=== PATIENT | male | born 1950 | race African-American/Black ===

== ENCOUNTER 2019-09-07 20:21 | Inpatient (IN) | payer MEDICARE, MEDICAID ==
[~2019-09-07] VITALS: Ht 165.1 cm; Wt 61.2 kg
[2019-09-07] MEDS ORDERED: LEVOFLOXACIN 750MG PREMIX 150 ML IV ONE (20:45)
[2019-09-07] MEDS ORDERED: SODIUM CHLORIDE 0.9% 1000ML BAG (SEPSIS BOLUS) IV ONE (20:45)
[2019-09-07] MEDS ORDERED: PIPERACILLIN/TAZ 3.375G PREMIX 50 ML IV ONE (20:45)
[2019-09-07 21:00] LABS: HEMATOCRIT. 25.8 % (42.0-52.0); HEMOGLOBIN. 7.9 g/dL (14.0-18.0); MEAN CORPUSCULAR HEMOGLOBIN 23.3 pg (28.0-32.0); MEAN CORPUSCULAR VOLUME 76.4 fL (80.0-94.0); MEAN PLATELET VOLUME 8.2 fl (7.4-10.4); PLATELET 718 x1000/uL (130-400); RED BLOOD CELL COUNT 3.38 mill/uL (4.7-6.1); RED CELL DISTRIBUTION WIDTH 16.5 % (11.6-14.6)
[2019-09-07] MEDS ORDERED: ACETAMINOPHEN 650MG SUPP PR ONE (21:00)
[2019-09-07 21:01] LABS: CHLORIDE 98 mEq/L (98-107)
[2019-09-07 21:05] LABS: INR 1.1
[2019-09-07 21:09] LABS: PLATELET ESTIMATE INCREASED
[2019-09-07 21:10] LABS: CLARITY URINE CLEAR (CLEAR); COLOR URINE YELLOW (YELLOW); KETONES URINE TRACE (NEGATIVE); LEUKOCYTE ESTERASE URINE TRACE (NEGATIVE); NITRITE URINE NEGATIVE (NEGATIVE); OCCULT BLOOD URINE NEGATIVE (NEGATIVE); PROTEIN URINE NEGATIVE (NEGATIVE); UROBILINOGEN URINE 0.2 E.U./dL (0.2-1.0)
[2019-09-08] VITALS (18 sets, daily range): BP systolic 110–130; BP diastolic 46–73
[2019-09-08] MEDS ORDERED: NON FORMULARY PATIENT HOME MED XX SCH (02:45)
[2019-09-08] MEDS ORDERED: DEXTROSE 50% WATER 50ML SYRINGE IV PRN (02:45)
[2019-09-08] MEDS: DEXT 5%/0.45% NACL 1000ML 1,000 ML IV SCH ×3 (03:52→22:21)
[2019-09-08] MEDS: PIPERACILLIN/TAZOBACTAM 3.375 G in DEXT 5% WATER 100 ML IV SCH ×4 (04:11→21:13)
[2019-09-08] MEDS: PANTOPRAZOLE 80 MG in SODIUM CHLORIDE 0.9% 100 ML IV SCH ×2 (04:11→13:47)
[2019-09-08] MEDS ORDERED: VANCOMYCIN 1500MG in DEXTROSE 5% WATER 250ML IV SCH (05:00)
[2019-09-08] MEDS: BLOOD SUGAR DIAGNOSTIC STRIP TEST SCH ×4 (06:00→23:50)
[2019-09-08] MEDS: INSULIN LISPRO 100 UNITS/ML SUBCUT SCH ×4 (07:29→21:00)
[2019-09-08] MEDS ORDERED: IPRATROPIUM/ALBUTEROL 0.5-3(2.5)MG/3ML NEB HHN PRN (09:45)
[2019-09-08] MEDS ORDERED: LIDOCAINE HCL/EPINEPHRINE 1%-EPI 1:100,000 20 ML VIAL INFIL SCH (10:00)
[2019-09-08 10:07] LABS: BG BASE EXCESS 1.7 mmol/L (-2.0-2.0); BG CARBOXYHEMOGLOBIN 0.3 % (0.5-1.5); BG DEOXYHEMOGLOBIN 10.3 % (0.0-5.0); BG FRACTION INSPIRED OXYGEN 21; BG HCO3 ACT 25.2 mmol/L (22.0-26.0); BG METHEMOGLOBIN 0.3 % (0.0-1.5); BG OXYGEN SATURATION 89.6 % (92.0-98.5); BG OXYHEMOGLOBIN 89.1 % (94.0-97.0); BG PCO2 33.7 mmHg (35.0-45.0); BG PH 7.492 (7.350-7.450); BG PO2 56.8 mmHg (75.0-100.0); BG SAMPLE SITE RIGHT RADIAL; BG TOTAL HEMOGLOBIN 5.7 g/dL (12.0-18.0); BG VENT MODE ROOM AIR
[2019-09-08 10:55] LABS: MEAN CORPUSCULAR HEMOGLOBIN 23.1 pg (28.0-32.0); MEAN CORPUSCULAR VOLUME 75.8 fL (80.0-94.0); PLATELET 521 x1000/uL (130-400); RED BLOOD CELL COUNT 2.37 mill/uL (4.7-6.1); RED CELL DISTRIBUTION WIDTH 16.4 % (11.6-14.6)
[2019-09-08 11:01] LABS: HEMOGLOBIN. 5.5 g/dL (14.0-18.0)
[2019-09-08 11:25] LABS: CHLORIDE 104 mEq/L (98-107)
[2019-09-08] MEDS ORDERED: INFLUENZA VIRUS VACCINE(AFLURIA) 0.5ML SYR IM ONE (12:00)
[2019-09-08 12:07] LABS: CHLORIDE 105 mEq/L (98-107)
[2019-09-08 13:01] LABS: NUCLEATED RED BLOOD CELLS 2 /100 WBC
[2019-09-08 13:02] LABS: PLATELET ESTIMATE INCREASED
[2019-09-08] MEDS: IPRATROPIUM/ALBUTEROL 0.5-3(2.5)MG/3ML NEB HHN SCH ×2 (14:04→20:40)
[2019-09-08] MEDS: PANTOPRAZOLE SODIUM 40 MG/VIAL IV SCH (17:06)
[2019-09-08] MEDS: VANCOMYCIN 1 G PREMIX 200 ML IV SCH (17:09)
[2019-09-08 18:27] LABS: HEMATOCRIT 22.8 % (42.0-52.0); HEMOGLOBIN 7.2 g/dL (14.0-18.0); MEAN CORPUSCULAR HEMOGLOBIN 25.4 pg (28.0-32.0); MEAN CORPUSCULAR VOLUME 80.1 fL (80.0-94.0); PLATELET 435 x1000/uL (130-400); RED BLOOD CELL COUNT 2.85 mill/uL (4.7-6.1); RED CELL DISTRIBUTION WIDTH 17.5 % (11.6-14.6)
[2019-09-08] MEDS: ACETAMINOPHEN 650MG/20.3ML UDC PO PRN (21:21)
[2019-09-09] VITALS (17 sets, daily range): BP systolic 106–147; BP diastolic 52–79
[2019-09-09] MEDS: IPRATROPIUM/ALBUTEROL 0.5-3(2.5)MG/3ML NEB HHN SCH ×4 (01:01→20:41)
[2019-09-09] MEDS: PIPERACILLIN/TAZOBACTAM 3.375 G in DEXT 5% WATER 100 ML IV SCH ×4 (03:11→22:18)
[2019-09-09] MEDS: VANCOMYCIN 1 G PREMIX 200 ML IV SCH ×3 (06:17→22:18)
[2019-09-09] MEDS: INSULIN LISPRO 100 UNITS/ML SUBCUT SCH ×4 (06:46→21:00)
[2019-09-09] MEDS: BLOOD SUGAR DIAGNOSTIC STRIP TEST SCH ×3 (06:46→18:08)
[2019-09-09 07:52] LABS: HEMOGLOBIN. 8.7 g/dL (14.0-18.0); MEAN CORPUSCULAR HEMOGLOBIN 26.1 pg (28.0-32.0); MEAN CORPUSCULAR VOLUME 78.2 fL (80.0-94.0); MEAN PLATELET VOLUME 7.9 fl (7.4-10.4); PLATELET 426 x1000/uL (130-400); RED BLOOD CELL COUNT 3.33 mill/uL (4.7-6.1); RED CELL DISTRIBUTION WIDTH 16.6 % (11.6-14.6)
[2019-09-09 08:21] LABS: CHLORIDE 106 mEq/L (98-107)
[2019-09-09] MEDS: PANTOPRAZOLE SODIUM 40 MG/VIAL IV SCH ×2 (09:35→17:54)
[2019-09-09] MEDS: DEXT 5%/0.45% NACL 1000ML 1,000 ML IV SCH ×2 (10:37→22:30)
[2019-09-09] MEDS: ACETAMINOPHEN 650MG/20.3ML UDC PO PRN (11:43)
[2019-09-09] MEDS ORDERED: POTASSIUM CHLORIDE INJ 40 MEQ in DEXT 5% WATER 250 ML IV NR (13:30)
[2019-09-09 14:02] LABS: PLATELET ESTIMATE SLIGHTLY INCREASED
[2019-09-09 14:19] LABS: BG CARBOXYHEMOGLOBIN 0.5 % (0.5-1.5); BG DEOXYHEMOGLOBIN 2.5 % (0.0-5.0); BG FRACTION INSPIRED OXYGEN 28; BG HCO3 ACT 24.7 mmol/L (22.0-26.0); BG METHEMOGLOBIN 0.2 % (0.0-1.5); BG OXYGEN SATURATION 97.5 % (92.0-98.5); BG OXYHEMOGLOBIN 96.8 % (94.0-97.0); BG PCO2 35.4 mmHg (35.0-45.0); BG PH 7.461 (7.350-7.450); BG PO2 96.6 mmHg (75.0-100.0); BG SAMPLE SITE RIGHT RADIAL; BG TOTAL HEMOGLOBIN 8.7 g/dL (12.0-18.0); BG VENT MODE NASAL CANNULA
[2019-09-09 15:55] LABS: HEMATOCRIT 26.3 % (42.0-52.0); HEMOGLOBIN 8.5 g/dL (14.0-18.0)
[2019-09-09 20:32] LABS: HEMATOCRIT 28.2 % (42.0-52.0); HEMOGLOBIN 9.1 g/dL (14.0-18.0)
[2019-09-10] VITALS (12 sets, daily range): BP systolic 112–158; BP diastolic 63–74
[2019-09-10] MEDS: BLOOD SUGAR DIAGNOSTIC STRIP TEST SCH ×4 (00:19→17:13)
[2019-09-10] MEDS: IPRATROPIUM/ALBUTEROL 0.5-3(2.5)MG/3ML NEB HHN SCH ×4 (01:22→20:50)
[2019-09-10 02:15] LABS: HEMATOCRIT 27.5 % (42.0-52.0); HEMOGLOBIN 8.7 g/dL (14.0-18.0)
[2019-09-10] MEDS: PIPERACILLIN/TAZOBACTAM 3.375 G in DEXT 5% WATER 100 ML IV SCH ×4 (03:17→21:07)
[2019-09-10] MEDS: INSULIN LISPRO 100 UNITS/ML SUBCUT SCH ×3 (06:00→17:13)
[2019-09-10] MEDS: VANCOMYCIN 1 G PREMIX 200 ML IV SCH ×3 (06:16→21:33)
[2019-09-10 08:11] LABS: HEMATOCRIT. 28.8 % (42.0-52.0); HEMOGLOBIN. 9.3 g/dL (14.0-18.0); MEAN CORPUSCULAR HEMOGLOBIN 25.8 pg (28.0-32.0); MEAN CORPUSCULAR VOLUME 80.4 fL (80.0-94.0); MEAN PLATELET VOLUME 8.4 fl (7.4-10.4); PLATELET 440 x1000/uL (130-400); RED BLOOD CELL COUNT 3.59 mill/uL (4.7-6.1); RED CELL DISTRIBUTION WIDTH 17.5 % (11.6-14.6)
[2019-09-10 09:06] LABS: CHLORIDE 105 mEq/L (98-107)
[2019-09-10] MEDS: PANTOPRAZOLE SODIUM 40 MG/VIAL IV SCH ×2 (09:55→17:17)
[2019-09-10] MEDS ORDERED: POTASSIUM CHLORIDE INJ 40 MEQ in DEXT 5% WATER 250 ML IV NR (11:30)
[2019-09-10 11:38] LABS: PLATELET ESTIMATE INCREASED
[2019-09-10] MEDS ORDERED: FENTANYL CITRATE/PF 50MCG/ML 2ML VIAL ONE (13:54)
[2019-09-10] MEDS ORDERED: MIDAZOLAM HCL 5 MG/5 ML VIAL ONE (13:54)
[2019-09-10] MEDS ORDERED: MIDAZOLAM HCL 5 MG/5 ML VIAL IV ONE (14:11)
[2019-09-10] MEDS: DEXT 5%/0.45% NACL 1000ML 1,000 ML IV SCH ×2 (14:44→20:22)
[2019-09-10] MEDS ORDERED: BACTERIOSTATIC SODIUM CHLORIDE 0.9% 30ML VIAL IJ ONE (15:17)
[2019-09-11] VITALS (13 sets, daily range): BP systolic 108–138; BP diastolic 53–80
[2019-09-11] MEDS: BLOOD SUGAR DIAGNOSTIC STRIP TEST SCH ×5 (00:23→23:28)
[2019-09-11] MEDS: ACETAMINOPHEN 650MG/20.3ML UDC PO PRN ×2 (01:24→16:17)
[2019-09-11] MEDS: IPRATROPIUM/ALBUTEROL 0.5-3(2.5)MG/3ML NEB HHN SCH ×4 (02:06→21:18)
[2019-09-11] MEDS: PIPERACILLIN/TAZOBACTAM 3.375 G in DEXT 5% WATER 100 ML IV SCH ×4 (04:28→21:33)
[2019-09-11] MEDS: VANCOMYCIN 1 G PREMIX 200 ML IV SCH ×2 (05:00→13:51)
[2019-09-11 06:22] LABS: BASOPHILS % 0.3 % (0.0-2.0); EOSINOPHILS % 1.6 % (0.0-5.0); HEMATOCRIT. 25.9 % (42.0-52.0); HEMOGLOBIN. 8.4 g/dL (14.0-18.0); LYMPHOCYTES % 7.6 % (20.0-50.0); MEAN CORPUSCULAR HEMOGLOBIN 25.8 pg (28.0-32.0); MEAN CORPUSCULAR VOLUME 79.7 fL (80.0-94.0); MEAN PLATELET VOLUME 8.3 fl (7.4-10.4); MONOCYTES % 8.7 % (2.0-8.0); NEUTROPHILS % 81.8 % (40.0-76.0); PLATELET 464 x1000/uL (130-400); RED BLOOD CELL COUNT 3.25 mill/uL (4.7-6.1); RED CELL DISTRIBUTION WIDTH 17.7 % (11.6-14.6)
[2019-09-11 06:57] LABS: CHLORIDE 104 mEq/L (98-107)
[2019-09-11] MEDS: PANTOPRAZOLE SODIUM 40 MG/VIAL IV SCH ×2 (09:54→16:17)
[2019-09-11] MEDS ORDERED: POTASSIUM CHLORIDE 20MEQ TABLET SR PO SCH (10:45)
[2019-09-11] MEDS: DEXT 5%/0.45% NACL 1000ML 1,000 ML IV SCH ×2 (11:00→21:33)
[2019-09-11] MEDS: INSULIN LISPRO 100 UNITS/ML SUBCUT SCH ×4 (12:00→23:28)
[2019-09-12] VITALS (11 sets, daily range): BP systolic 101–159; BP diastolic 51–80
[2019-09-12] MEDS: IPRATROPIUM/ALBUTEROL 0.5-3(2.5)MG/3ML NEB HHN SCH ×4 (01:26→20:16)
[2019-09-12] MEDS: PIPERACILLIN/TAZOBACTAM 3.375 G in DEXT 5% WATER 100 ML IV SCH ×2 (03:45→09:22)
[2019-09-12] MEDS: BLOOD SUGAR DIAGNOSTIC STRIP TEST SCH ×4 (05:32→23:32)
[2019-09-12] MEDS: INSULIN LISPRO 100 UNITS/ML SUBCUT SCH ×4 (05:32→23:32)
[2019-09-12] MEDS ORDERED: VANCOMYCIN 1 G PREMIX 200 ML IV SCH (06:00)
[2019-09-12 07:21] LABS: HEMATOCRIT. 26.3 % (42.0-52.0); HEMOGLOBIN. 8.4 g/dL (14.0-18.0); MEAN CORPUSCULAR HEMOGLOBIN 25.6 pg (28.0-32.0); MEAN PLATELET VOLUME 8.2 fl (7.4-10.4); PLATELET 505 x1000/uL (130-400); RED BLOOD CELL COUNT 3.28 mill/uL (4.7-6.1); RED CELL DISTRIBUTION WIDTH 18.4 % (11.6-14.6)
[2019-09-12] MEDS: ZINC SULFATE 220 MG ( 50 ) CAPSULE GT SCH (08:28)
[2019-09-12] MEDS: ASCORBIC ACID 500 MG TABLET GT SCH (08:28)
[2019-09-12] MEDS: PANTOPRAZOLE SODIUM 40 MG/VIAL IV SCH ×2 (08:28→17:44)
[2019-09-12] MEDS: ACETAMINOPHEN 650MG/20.3ML UDC PO PRN ×2 (09:07→23:23)
[2019-09-12 11:22] LABS: PLATELET ESTIMATE INCREASED
[2019-09-12] MEDS ORDERED: CEFEPIME 2,000 MG in DEXT 5% WATER 100 ML IV SCH ×2 (12:00→13:00)
[2019-09-12] MEDS: DEXT 5%/0.45% NACL 1000ML 1,000 ML IV SCH ×2 (13:48→22:30)
[2019-09-12] MEDS ORDERED: SODIUM CHLORIDE 0.9% 500 ML IV NR (15:15)
[2019-09-12] MEDS: LINEZOLID 600 MG PREMIX 300 ML IV SCH (15:40)
[2019-09-12] MEDS: METRONIDAZOLE 250MG TABLET PO SCH ×2 (17:44→22:22)
[2019-09-13] VITALS (12 sets, daily range): BP systolic 120–155; BP diastolic 63–76
[2019-09-13] MEDS: IPRATROPIUM/ALBUTEROL 0.5-3(2.5)MG/3ML NEB HHN SCH ×4 (00:20→20:53)
[2019-09-13] MEDS: LINEZOLID 600 MG PREMIX 300 ML IV SCH (02:00)
[2019-09-13] MEDS: METRONIDAZOLE 250MG TABLET PO SCH ×2 (03:48→09:27)
[2019-09-13] MEDS: INSULIN LISPRO 100 UNITS/ML SUBCUT SCH ×3 (06:00→18:00)
[2019-09-13] MEDS: BLOOD SUGAR DIAGNOSTIC STRIP TEST SCH ×3 (06:03→18:00)
[2019-09-13 07:20] LABS: BASOPHILS % 0.3 % (0.0-2.0); EOSINOPHILS % 1.2 % (0.0-5.0); HEMATOCRIT. 26.6 % (42.0-52.0); HEMOGLOBIN. 8.5 g/dL (14.0-18.0); LYMPHOCYTES % 9.2 % (20.0-50.0); MEAN CORPUSCULAR HEMOGLOBIN 25.5 pg (28.0-32.0); MEAN CORPUSCULAR VOLUME 79.8 fL (80.0-94.0); MEAN PLATELET VOLUME 8.3 fl (7.4-10.4); MONOCYTES % 9.5 % (2.0-8.0); NEUTROPHILS % 79.8 % (40.0-76.0); PLATELET 501 x1000/uL (130-400); RED BLOOD CELL COUNT 3.34 mill/uL (4.7-6.1); RED CELL DISTRIBUTION WIDTH 18.5 % (11.6-14.6)
[2019-09-13] MEDS: PANTOPRAZOLE SODIUM 40 MG/VIAL IV SCH ×2 (09:19→18:29)
[2019-09-13] MEDS: DEXT 5%/0.45% NACL 1000ML 1,000 ML IV SCH ×2 (09:20→20:19)
[2019-09-13] MEDS: ASCORBIC ACID 500 MG TABLET GT SCH (09:20)
[2019-09-13] MEDS: ZINC SULFATE 220 MG ( 50 ) CAPSULE GT SCH (09:20)
[2019-09-13 12:22] LABS: CREATINE KINASE 876 IU/L (39-308)
[2019-09-13] MEDS: SUCRALFATE 1 G/10 ML UDC PO SCH ×3 (13:01→20:19)
[2019-09-13] MEDS: PIPERACILLIN/TAZOBACTAM 2.25 G in DEXTROSE 5% WATER 50 ML IV SCH ×2 (14:26→20:19)
[2019-09-13] MEDS ORDERED: VANCOMYCIN 1 G PREMIX 200 ML IV SCH (18:00)
[2019-09-14] VITALS (12 sets, daily range): BP systolic 131–166; BP diastolic 59–86
[2019-09-14] MEDS: BLOOD SUGAR DIAGNOSTIC STRIP TEST SCH ×4 (00:05→18:10)
[2019-09-14] MEDS: PIPERACILLIN/TAZOBACTAM 2.25 G in DEXTROSE 5% WATER 50 ML IV SCH ×4 (01:38→19:50)
[2019-09-14] MEDS: IPRATROPIUM/ALBUTEROL 0.5-3(2.5)MG/3ML NEB HHN SCH ×4 (02:32→20:02)
[2019-09-14] MEDS: INSULIN LISPRO 100 UNITS/ML SUBCUT SCH ×4 (06:00→18:00)
[2019-09-14] MEDS: SUCRALFATE 1 G/10 ML UDC PO SCH ×4 (06:46→20:00)
[2019-09-14] MEDS: DEXT 5%/0.45% NACL 1000ML 1,000 ML IV SCH ×2 (06:48→16:22)
[2019-09-14 06:56] LABS: BASOPHILS % 0.3 % (0.0-2.0); HEMATOCRIT. 26.5 % (42.0-52.0); HEMOGLOBIN. 8.6 g/dL (14.0-18.0); LYMPHOCYTES % 13.4 % (20.0-50.0); MEAN CORPUSCULAR HEMOGLOBIN 25.8 pg (28.0-32.0); MEAN CORPUSCULAR VOLUME 79.6 fL (80.0-94.0); MEAN PLATELET VOLUME 8.6 fl (7.4-10.4); MONOCYTES % 7.9 % (2.0-8.0); NEUTROPHILS % 76.4 % (40.0-76.0); PLATELET 508 x1000/uL (130-400); RED BLOOD CELL COUNT 3.32 mill/uL (4.7-6.1); RED CELL DISTRIBUTION WIDTH 18.7 % (11.6-14.6)
[2019-09-14] MEDS: PANTOPRAZOLE SODIUM 40 MG/VIAL IV SCH ×2 (09:20→16:22)
[2019-09-14] MEDS: ZINC SULFATE 220 MG ( 50 ) CAPSULE GT SCH (09:20)
[2019-09-14] MEDS: ASCORBIC ACID 500 MG TABLET GT SCH (09:20)
[2019-09-14 10:16] LABS: CREATINE KINASE 991 IU/L (39-308)
[2019-09-15] VITALS (12 sets, daily range): BP systolic 119–160; BP diastolic 61–81
[2019-09-15] MEDS: BLOOD SUGAR DIAGNOSTIC STRIP TEST SCH ×4 (00:27→18:07)
[2019-09-15] MEDS: DEXT 5%/0.45% NACL 1000ML 1,000 ML IV SCH ×3 (01:31→20:43)
[2019-09-15] MEDS: PIPERACILLIN/TAZOBACTAM 2.25 G in DEXTROSE 5% WATER 50 ML IV SCH ×4 (01:31→20:43)
[2019-09-15] MEDS: IPRATROPIUM/ALBUTEROL 0.5-3(2.5)MG/3ML NEB HHN SCH ×4 (02:32→21:24)
[2019-09-15 04:17] LABS: OVA & PARASITE EXAM Final report (.)
[2019-09-15] MEDS: INSULIN LISPRO 100 UNITS/ML SUBCUT SCH ×4 (06:00→18:00)
[2019-09-15 07:09] LABS: BASOPHILS % 0.3 % (0.0-2.0); EOSINOPHILS % 1.9 % (0.0-5.0); HEMATOCRIT. 27.8 % (42.0-52.0); HEMOGLOBIN. 8.9 g/dL (14.0-18.0); LYMPHOCYTES % 9.5 % (20.0-50.0); MEAN CORPUSCULAR HEMOGLOBIN 25.3 pg (28.0-32.0); MEAN CORPUSCULAR VOLUME 79.2 fL (80.0-94.0); MEAN PLATELET VOLUME 8.3 fl (7.4-10.4); MONOCYTES % 6.9 % (2.0-8.0); NEUTROPHILS % 81.4 % (40.0-76.0); PLATELET 538 x1000/uL (130-400); RED BLOOD CELL COUNT 3.51 mill/uL (4.7-6.1); RED CELL DISTRIBUTION WIDTH 18.9 % (11.6-14.6)
[2019-09-15] MEDS: SUCRALFATE 1 G/10 ML UDC PO SCH ×4 (08:52→20:43)
[2019-09-15] MEDS: ZINC SULFATE 220 MG ( 50 ) CAPSULE GT SCH (08:52)
[2019-09-15] MEDS: ASCORBIC ACID 500 MG TABLET GT SCH (08:52)
[2019-09-15] MEDS: PANTOPRAZOLE SODIUM 40 MG/VIAL IV SCH ×2 (08:52→18:12)
[2019-09-15 09:06] LABS: COMPLEMENT C3 123 mg/dL (82-167)
[2019-09-15 09:06] LABS: SACCHAROMYCES CEREVISIAE IGG 36.9 Units (0.0-24.9)
[2019-09-15 14:07] LABS: ATYPICAL pANCA <1:20 titer (Neg:<1:20)
[2019-09-15 15:10] LABS: ANTI-NUCLEAR ANTIBODIES DIRECT Negative (Negative)
[2019-09-16] VITALS (12 sets, daily range): BP systolic 124–145; BP diastolic 64–79
[2019-09-16] MEDS: PIPERACILLIN/TAZOBACTAM 2.25 G in DEXTROSE 5% WATER 50 ML IV SCH ×4 (01:42→20:59)
[2019-09-16] MEDS: IPRATROPIUM/ALBUTEROL 0.5-3(2.5)MG/3ML NEB HHN SCH ×4 (01:46→21:14)
[2019-09-16] MEDS: INSULIN LISPRO 100 UNITS/ML SUBCUT SCH ×4 (06:00→17:32)
[2019-09-16 06:03] LABS: BASOPHILS % 0.3 % (0.0-2.0); EOSINOPHILS % 2.7 % (0.0-5.0); HEMATOCRIT. 26.4 % (42.0-52.0); HEMOGLOBIN. 8.5 g/dL (14.0-18.0); LYMPHOCYTES % 13.1 % (20.0-50.0); MEAN CORPUSCULAR HEMOGLOBIN 25.5 pg (28.0-32.0); MEAN CORPUSCULAR VOLUME 79.7 fL (80.0-94.0); MEAN PLATELET VOLUME 8.6 fl (7.4-10.4); MONOCYTES % 6.2 % (2.0-8.0); NEUTROPHILS % 77.7 % (40.0-76.0); PLATELET 546 x1000/uL (130-400); RED BLOOD CELL COUNT 3.31 mill/uL (4.7-6.1); RED CELL DISTRIBUTION WIDTH 18.9 % (11.6-14.6)
[2019-09-16] MEDS: BLOOD SUGAR DIAGNOSTIC STRIP TEST SCH ×4 (06:06→17:32)
[2019-09-16] MEDS: DEXT 5%/0.45% NACL 1000ML 1,000 ML IV SCH ×2 (06:07→18:57)
[2019-09-16] MEDS: PANTOPRAZOLE SODIUM 40 MG/VIAL IV SCH ×2 (09:26→17:39)
[2019-09-16] MEDS: ASCORBIC ACID 500 MG TABLET GT SCH (09:26)
[2019-09-16] MEDS: ZINC SULFATE 220 MG ( 50 ) CAPSULE GT SCH (09:27)
[2019-09-16] MEDS: SUCRALFATE 1 G/10 ML UDC PO SCH ×4 (09:27→21:27)
[2019-09-16 17:47] LABS: PHOSPHORUS 3.2 mg/dL (2.5-4.9)
[2019-09-17] VITALS (12 sets, daily range): BP systolic 133–147; BP diastolic 69–84
[2019-09-17] MEDS: BLOOD SUGAR DIAGNOSTIC STRIP TEST SCH ×5 (00:30→23:33)
[2019-09-17] MEDS: IPRATROPIUM/ALBUTEROL 0.5-3(2.5)MG/3ML NEB HHN SCH ×4 (01:47→20:33)
[2019-09-17] MEDS: PIPERACILLIN/TAZOBACTAM 2.25 G in DEXTROSE 5% WATER 50 ML IV SCH ×4 (03:26→21:59)
[2019-09-17] MEDS: DEXT 5%/0.45% NACL 1000ML 1,000 ML IV SCH ×3 (03:26→23:33)
[2019-09-17] MEDS: INSULIN LISPRO 100 UNITS/ML SUBCUT SCH ×5 (05:18→23:42)
[2019-09-17] MEDS: SUCRALFATE 1 G/10 ML UDC PO SCH ×4 (06:26→22:00)
[2019-09-17 06:52] LABS: BASOPHILS % 0.4 % (0.0-2.0); EOSINOPHILS % 2.7 % (0.0-5.0); HEMATOCRIT. 24.7 % (42.0-52.0); HEMOGLOBIN. 7.9 g/dL (14.0-18.0); LYMPHOCYTES % 13.3 % (20.0-50.0); MEAN CORPUSCULAR HEMOGLOBIN 25.1 pg (28.0-32.0); MEAN CORPUSCULAR VOLUME 78.8 fL (80.0-94.0); MEAN PLATELET VOLUME 8.8 fl (7.4-10.4); NEUTROPHILS % 77.6 % (40.0-76.0); PLATELET 519 x1000/uL (130-400); RED BLOOD CELL COUNT 3.13 mill/uL (4.7-6.1); RED CELL DISTRIBUTION WIDTH 18.9 % (11.6-14.6)
[2019-09-17] MEDS: ASCORBIC ACID 500 MG TABLET GT SCH (08:10)
[2019-09-17] MEDS: PANTOPRAZOLE SODIUM 40 MG/VIAL IV SCH ×2 (08:10→17:18)
[2019-09-17] MEDS: ZINC SULFATE 220 MG ( 50 ) CAPSULE GT SCH (08:10)
[2019-09-17] MEDS: ASCORBIC ACID 250 MG TABLET PO SCH ×2 (10:24→22:00)
[2019-09-17] MEDS ORDERED: FERROUS SULFATE 325MG TABLET PO SCH (13:00)
[2019-09-17] MEDS: FERROUS SULFATE 300MG/5ML UDC PEG SCH ×2 (13:41→17:18)
[2019-09-18] VITALS (12 sets, daily range): BP systolic 128–172; BP diastolic 65–91
[2019-09-18] MEDS: IPRATROPIUM/ALBUTEROL 0.5-3(2.5)MG/3ML NEB HHN SCH ×4 (02:06→20:32)
[2019-09-18] MEDS: PIPERACILLIN/TAZOBACTAM 2.25 G in DEXTROSE 5% WATER 50 ML IV SCH ×4 (02:27→21:25)
[2019-09-18] MEDS: INSULIN LISPRO 100 UNITS/ML SUBCUT SCH ×3 (05:52→17:36)
[2019-09-18] MEDS: BLOOD SUGAR DIAGNOSTIC STRIP TEST SCH ×3 (05:52→17:36)
[2019-09-18] MEDS: SUCRALFATE 1 G/10 ML UDC PO SCH ×4 (06:03→21:25)
[2019-09-18 06:05] LABS: BASOPHILS % 0.6 % (0.0-2.0); EOSINOPHILS % 2.1 % (0.0-5.0); HEMATOCRIT. 24.2 % (42.0-52.0); HEMOGLOBIN. 7.6 g/dL (14.0-18.0); LYMPHOCYTES % 10.9 % (20.0-50.0); MEAN CORPUSCULAR HEMOGLOBIN 25.3 pg (28.0-32.0); MEAN PLATELET VOLUME 9.4 fl (7.4-10.4); MONOCYTES % 5.3 % (2.0-8.0); NEUTROPHILS % 81.1 % (40.0-76.0); PLATELET 524 x1000/uL (130-400); RED BLOOD CELL COUNT 3.02 mill/uL (4.7-6.1); RED CELL DISTRIBUTION WIDTH 19.3 % (11.6-14.6)
[2019-09-18 06:14] LABS: CHLORIDE 111 mEq/L (98-107)
[2019-09-18 08:46] LABS: PLATELET ESTIMATE INCREASED
[2019-09-18] MEDS: PANTOPRAZOLE SODIUM 40 MG/VIAL IV SCH ×2 (09:20→17:37)
[2019-09-18] MEDS: ASCORBIC ACID 500 MG TABLET GT SCH (09:20)
[2019-09-18] MEDS: ZINC SULFATE 220 MG ( 50 ) CAPSULE GT SCH (09:21)
[2019-09-18] MEDS: ASCORBIC ACID 250 MG TABLET PO SCH ×2 (09:21→21:26)
[2019-09-18] MEDS: DEXT 5%/0.45% NACL 1000ML 1,000 ML IV SCH ×2 (09:22→19:45)
[2019-09-18] MEDS: FERROUS SULFATE 300MG/5ML UDC PEG SCH ×3 (09:22→17:36)
[2019-09-18] MEDS ORDERED: POTASSIUM CHLORIDE 20MEQ/PACKET PO NR (09:30)
[2019-09-18] MEDS ORDERED: AMLODIPINE 2.5MG TABLET PEG NR (14:30)
[2019-09-19] VITALS (12 sets, daily range): BP systolic 117–161; BP diastolic 60–79
[2019-09-19] MEDS: PIPERACILLIN/TAZOBACTAM 2.25 G in DEXTROSE 5% WATER 50 ML IV SCH ×4 (01:52→20:33)
[2019-09-19] MEDS: IPRATROPIUM/ALBUTEROL 0.5-3(2.5)MG/3ML NEB HHN SCH ×4 (02:36→20:31)
[2019-09-19 03:19] LABS: CLARITY URINE CLEAR (CLEAR); COLOR URINE YELLOW (YELLOW); KETONES URINE NEGATIVE (NEGATIVE); LEUKOCYTE ESTERASE URINE NEGATIVE (NEGATIVE); NITRITE URINE NEGATIVE (NEGATIVE); OCCULT BLOOD URINE NEGATIVE (NEGATIVE); PROTEIN URINE NEGATIVE (NEGATIVE); SPECIFIC GRAVITY URINE 1.008 (1.005-1.030); UROBILINOGEN URINE 0.2 E.U./dL (0.2-1.0)
[2019-09-19] MEDS: DEXT 5%/0.45% NACL 1000ML 1,000 ML IV SCH (04:43)
[2019-09-19 05:42] LABS: BASOPHILS % 0.4 % (0.0-2.0); HEMATOCRIT. 25.5 % (42.0-52.0); HEMOGLOBIN. 8.2 g/dL (14.0-18.0); LYMPHOCYTES % 12.6 % (20.0-50.0); MEAN CORPUSCULAR HEMOGLOBIN 25.2 pg (28.0-32.0); MEAN CORPUSCULAR VOLUME 78.5 fL (80.0-94.0); MONOCYTES % 5.8 % (2.0-8.0); NEUTROPHILS % 78.2 % (40.0-76.0); PLATELET 540 x1000/uL (130-400); RED BLOOD CELL COUNT 3.26 mill/uL (4.7-6.1); RED CELL DISTRIBUTION WIDTH 19.1 % (11.6-14.6)
[2019-09-19] MEDS: BLOOD SUGAR DIAGNOSTIC STRIP TEST SCH ×4 (06:00→17:14)
[2019-09-19] MEDS: INSULIN LISPRO 100 UNITS/ML SUBCUT SCH ×4 (06:00→17:14)
[2019-09-19] MEDS: ASCORBIC ACID 250 MG TABLET PO SCH ×2 (08:26→20:33)
[2019-09-19] MEDS: ASCORBIC ACID 500 MG TABLET GT SCH (08:27)
[2019-09-19] MEDS: AMLODIPINE 2.5MG TABLET PEG SCH (08:27)
[2019-09-19] MEDS: FERROUS SULFATE 300MG/5ML UDC PEG SCH ×3 (08:27→17:40)
[2019-09-19] MEDS: SUCRALFATE 1 G/10 ML UDC PO SCH ×4 (08:27→20:33)
[2019-09-19] MEDS: ZINC SULFATE 220 MG ( 50 ) CAPSULE GT SCH (08:27)
[2019-09-19] MEDS: PANTOPRAZOLE SODIUM 40 MG/VIAL IV SCH ×2 (08:28→17:40)
[2019-09-19] MEDS: ACETAMINOPHEN 650MG/20.3ML UDC PO PRN (08:28)
[2019-09-19] MEDS ORDERED: SODIUM CHLORIDE 0.9% 500 ML IV ONE (13:30)
[2019-09-19 14:04] LABS: T4 FREE 1.41 ng/dL (0.76-1.46)
[2019-09-20] VITALS (12 sets, daily range): BP systolic 128–170; BP diastolic 62–90
[2019-09-20] MEDS: INSULIN LISPRO 100 UNITS/ML SUBCUT SCH ×5 (01:14→23:20)
[2019-09-20] MEDS: PIPERACILLIN/TAZOBACTAM 2.25 G in DEXTROSE 5% WATER 50 ML IV SCH ×4 (02:35→19:40)
[2019-09-20] MEDS: IPRATROPIUM/ALBUTEROL 0.5-3(2.5)MG/3ML NEB HHN SCH ×4 (02:41→21:12)
[2019-09-20] MEDS: BLOOD SUGAR DIAGNOSTIC STRIP TEST SCH ×5 (06:00→23:19)
[2019-09-20 06:28] LABS: PHOSPHORUS 3.3 mg/dL (2.5-4.9)
[2019-09-20 06:29] LABS: BASOPHILS % 0.4 % (0.0-2.0); EOSINOPHILS % 3.2 % (0.0-5.0); HEMATOCRIT. 26.4 % (42.0-52.0); HEMOGLOBIN. 8.5 g/dL (14.0-18.0); LYMPHOCYTES % 13.4 % (20.0-50.0); MEAN CORPUSCULAR HEMOGLOBIN 25.2 pg (28.0-32.0); MEAN CORPUSCULAR VOLUME 78.7 fL (80.0-94.0); MEAN PLATELET VOLUME 9.1 fl (7.4-10.4); MONOCYTES % 5.6 % (2.0-8.0); NEUTROPHILS % 77.4 % (40.0-76.0); PLATELET 612 x1000/uL (130-400); RED BLOOD CELL COUNT 3.35 mill/uL (4.7-6.1)
[2019-09-20] MEDS: SUCRALFATE 1 G/10 ML UDC PO SCH ×4 (07:30→20:16)
[2019-09-20] MEDS: FERROUS SULFATE 300MG/5ML UDC PEG SCH ×3 (08:00→17:25)
[2019-09-20] MEDS: ASCORBIC ACID 500 MG TABLET GT SCH (09:34)
[2019-09-20] MEDS: AMLODIPINE 2.5MG TABLET PEG SCH (09:34)
[2019-09-20] MEDS: ZINC SULFATE 220 MG ( 50 ) CAPSULE GT SCH (09:34)
[2019-09-20] MEDS: PANTOPRAZOLE SODIUM 40 MG/VIAL IV SCH ×2 (09:34→17:25)
[2019-09-21] VITALS (12 sets, daily range): BP systolic 129–151; BP diastolic 62–77
[2019-09-21] MEDS: IPRATROPIUM/ALBUTEROL 0.5-3(2.5)MG/3ML NEB HHN SCH ×3 (01:44→20:22)
[2019-09-21] MEDS: BLOOD SUGAR DIAGNOSTIC STRIP TEST SCH ×3 (05:15→17:17)
[2019-09-21] MEDS: INSULIN LISPRO 100 UNITS/ML SUBCUT SCH ×3 (05:15→17:17)
[2019-09-21] MEDS: FERROUS SULFATE 300MG/5ML UDC PEG SCH ×3 (09:41→17:09)
[2019-09-21] MEDS: ASCORBIC ACID 500 MG TABLET GT SCH (09:41)
[2019-09-21] MEDS: PANTOPRAZOLE SODIUM 40 MG/VIAL IV SCH ×2 (09:41→16:49)
[2019-09-21] MEDS: ZINC SULFATE 220 MG ( 50 ) CAPSULE GT SCH (09:42)
[2019-09-21] MEDS: AMLODIPINE 2.5MG TABLET PEG SCH (09:42)
[2019-09-21] MEDS: SUCRALFATE 1 G/10 ML UDC PO SCH ×4 (10:28→22:28)
[2019-09-21] MEDS ORDERED: PIPERACILLIN/TAZOBACTAM 2.25 G in DEXTROSE 5% WATER 50 ML IV SCH ×2 (12:45→13:00)
[2019-09-21] MEDS ORDERED: LIDOCAINE HCL/EPINEPHRINE 1%-EPI 1:100,000 20 ML VIAL INFIL NR (16:00)
[2019-09-21] MEDS: PIPERACILLIN/TAZOBACTAM 2.25 G in DEXTROSE 5% WATER 50 ML IV SCH ×2 (16:43→22:28)
[2019-09-22] VITALS (12 sets, daily range): BP systolic 126–163; BP diastolic 67–85
[2019-09-22] MEDS: IPRATROPIUM/ALBUTEROL 0.5-3(2.5)MG/3ML NEB HHN SCH ×3 (02:08→20:20)
[2019-09-22] MEDS: PIPERACILLIN/TAZOBACTAM 2.25 G in DEXTROSE 5% WATER 50 ML IV SCH ×4 (03:17→21:36)
[2019-09-22] MEDS: INSULIN LISPRO 100 UNITS/ML SUBCUT SCH ×5 (06:00→23:54)
[2019-09-22 06:03] LABS: BASOPHILS % 0.7 % (0.0-2.0); HEMATOCRIT. 26.7 % (42.0-52.0); HEMOGLOBIN. 8.6 g/dL (14.0-18.0); LYMPHOCYTES % 16.9 % (20.0-50.0); MEAN CORPUSCULAR HEMOGLOBIN 25.3 pg (28.0-32.0); MEAN CORPUSCULAR VOLUME 78.6 fL (80.0-94.0); MEAN PLATELET VOLUME 9.3 fl (7.4-10.4); MONOCYTES % 5.2 % (2.0-8.0); NEUTROPHILS % 74.2 % (40.0-76.0); PLATELET 580 x1000/uL (130-400); RED CELL DISTRIBUTION WIDTH 19.4 % (11.6-14.6)
[2019-09-22] MEDS: BLOOD SUGAR DIAGNOSTIC STRIP TEST SCH ×5 (06:51→23:54)
[2019-09-22] MEDS: SUCRALFATE 1 G/10 ML UDC PO SCH ×4 (07:59→21:37)
[2019-09-22] MEDS: FERROUS SULFATE 300MG/5ML UDC PEG SCH ×3 (07:59→17:11)
[2019-09-22] MEDS: ASCORBIC ACID 500 MG TABLET GT SCH (08:00)
[2019-09-22] MEDS: ZINC SULFATE 220 MG ( 50 ) CAPSULE GT SCH (08:00)
[2019-09-22] MEDS: AMLODIPINE 2.5MG TABLET PEG SCH (08:00)
[2019-09-22] MEDS: PANTOPRAZOLE SODIUM 40 MG/VIAL IV SCH ×2 (08:00→17:11)
[2019-09-22] MEDS: ACETAMINOPHEN 650MG/20.3ML UDC PO PRN (21:36)
[2019-09-23] VITALS (12 sets, daily range): BP systolic 128–163; BP diastolic 60–82
[2019-09-23] MEDS: IPRATROPIUM/ALBUTEROL 0.5-3(2.5)MG/3ML NEB HHN SCH ×4 (02:10→20:52)
[2019-09-23] MEDS: PIPERACILLIN/TAZOBACTAM 2.25 G in DEXTROSE 5% WATER 50 ML IV SCH ×4 (02:22→20:56)
[2019-09-23] MEDS: INSULIN LISPRO 100 UNITS/ML SUBCUT SCH ×3 (06:00→18:00)
[2019-09-23] MEDS: BLOOD SUGAR DIAGNOSTIC STRIP TEST SCH ×3 (06:48→17:14)
[2019-09-23 07:27] LABS: BASOPHILS % 0.4 % (0.0-2.0); HEMATOCRIT. 25.1 % (42.0-52.0); HEMOGLOBIN. 8.1 g/dL (14.0-18.0); MEAN CORPUSCULAR HEMOGLOBIN 25.3 pg (28.0-32.0); MEAN CORPUSCULAR VOLUME 78.3 fL (80.0-94.0); MEAN PLATELET VOLUME 9.2 fl (7.4-10.4); MONOCYTES % 5.9 % (2.0-8.0); NEUTROPHILS % 72.7 % (40.0-76.0); PLATELET 551 x1000/uL (130-400)
[2019-09-23] MEDS: FERROUS SULFATE 300MG/5ML UDC PEG SCH ×3 (08:59→17:26)
[2019-09-23] MEDS: AMLODIPINE 2.5MG TABLET PEG SCH (08:59)
[2019-09-23] MEDS: ZINC SULFATE 220 MG ( 50 ) CAPSULE GT SCH (08:59)
[2019-09-23] MEDS: ASCORBIC ACID 500 MG TABLET GT SCH (09:00)
[2019-09-23] MEDS: PANTOPRAZOLE SODIUM 40 MG/VIAL IV SCH ×2 (09:00→17:26)
[2019-09-23] MEDS: SUCRALFATE 1 G/10 ML UDC PO SCH ×4 (09:00→20:56)
[2019-09-23] MEDS: SODIUM CHLORIDE 0.45% 1,000 ML IV SCH (13:03)
[2019-09-23] MEDS: ACETAMINOPHEN 650MG/20.3ML UDC PO PRN (20:56)
[2019-09-24] VITALS (12 sets, daily range): BP systolic 135–157; BP diastolic 63–79
[2019-09-24] MEDS: IPRATROPIUM/ALBUTEROL 0.5-3(2.5)MG/3ML NEB HHN SCH ×4 (02:27→20:28)
[2019-09-24] MEDS: PIPERACILLIN/TAZOBACTAM 2.25 G in DEXTROSE 5% WATER 50 ML IV SCH ×4 (02:33→20:50)
[2019-09-24] MEDS: INSULIN LISPRO 100 UNITS/ML SUBCUT SCH ×4 (06:00→17:13)
[2019-09-24] MEDS: BLOOD SUGAR DIAGNOSTIC STRIP TEST SCH ×4 (06:00→17:13)
[2019-09-24] MEDS: SUCRALFATE 1 G/10 ML UDC PO SCH ×4 (06:36→20:51)
[2019-09-24 07:05] LABS: BASOPHILS % 0.7 % (0.0-2.0); EOSINOPHILS % 2.6 % (0.0-5.0); HEMATOCRIT. 24.6 % (42.0-52.0); HEMOGLOBIN. 7.8 g/dL (14.0-18.0); LYMPHOCYTES % 14.4 % (20.0-50.0); MEAN CORPUSCULAR HEMOGLOBIN 24.9 pg (28.0-32.0); MEAN CORPUSCULAR VOLUME 78.8 fL (80.0-94.0); MEAN PLATELET VOLUME 9.2 fl (7.4-10.4); MONOCYTES % 6.5 % (2.0-8.0); NEUTROPHILS % 75.8 % (40.0-76.0); PLATELET 529 x1000/uL (130-400); RED BLOOD CELL COUNT 3.12 mill/uL (4.7-6.1); RED CELL DISTRIBUTION WIDTH 20.2 % (11.6-14.6)
[2019-09-24] MEDS: PANTOPRAZOLE SODIUM 40 MG/VIAL IV SCH ×2 (08:47→17:13)
[2019-09-24] MEDS: ASCORBIC ACID 500 MG TABLET GT SCH (08:47)
[2019-09-24] MEDS: FERROUS SULFATE 300MG/5ML UDC PEG SCH ×3 (08:47→17:13)
[2019-09-24] MEDS: ZINC SULFATE 220 MG ( 50 ) CAPSULE GT SCH (08:47)
[2019-09-24] MEDS: AMLODIPINE 2.5MG TABLET PEG SCH (08:48)
[2019-09-24] MEDS: SODIUM CHLORIDE 0.45% 1,000 ML IV SCH (08:48)
[2019-09-24] MEDS: ACETAMINOPHEN 650MG/20.3ML UDC PO PRN (20:51)
[2019-09-25] VITALS (10 sets, daily range): BP systolic 135–158; BP diastolic 64–75
[2019-09-25] MEDS: IPRATROPIUM/ALBUTEROL 0.5-3(2.5)MG/3ML NEB HHN SCH ×4 (01:35→21:19)
[2019-09-25] MEDS: PIPERACILLIN/TAZOBACTAM 2.25 G in DEXTROSE 5% WATER 50 ML IV SCH ×4 (03:02→20:54)
[2019-09-25] MEDS: INSULIN LISPRO 100 UNITS/ML SUBCUT SCH ×5 (06:00→23:41)
[2019-09-25] MEDS: BLOOD SUGAR DIAGNOSTIC STRIP TEST SCH ×5 (06:00→23:41)
[2019-09-25] MEDS: SODIUM CHLORIDE 0.45% 1,000 ML IV SCH ×2 (06:26→23:41)
[2019-09-25] MEDS: SUCRALFATE 1 G/10 ML UDC PO SCH ×4 (06:30→20:54)
[2019-09-25 06:44] LABS: BASOPHILS % 0.4 % (0.0-2.0); EOSINOPHILS % 1.5 % (0.0-5.0); HEMATOCRIT. 23.8 % (42.0-52.0); HEMOGLOBIN. 7.5 g/dL (14.0-18.0); LYMPHOCYTES % 13.7 % (20.0-50.0); MEAN CORPUSCULAR VOLUME 78.8 fL (80.0-94.0); MEAN PLATELET VOLUME 9.3 fl (7.4-10.4); MONOCYTES % 6.1 % (2.0-8.0); NEUTROPHILS % 78.3 % (40.0-76.0); PLATELET 493 x1000/uL (130-400); RED BLOOD CELL COUNT 3.01 mill/uL (4.7-6.1); RED CELL DISTRIBUTION WIDTH 19.9 % (11.6-14.6)
[2019-09-25] MEDS: FERROUS SULFATE 300MG/5ML UDC PEG SCH ×3 (08:00→16:13)
[2019-09-25] MEDS ORDERED: POTASSIUM CHLORIDE 20MEQ/PACKET PO SCH (09:45)
[2019-09-25] MEDS: ASCORBIC ACID 500 MG TABLET GT SCH (11:05)
[2019-09-25] MEDS: PANTOPRAZOLE SODIUM 40 MG/VIAL IV SCH ×2 (11:05→16:12)
[2019-09-25] MEDS: ACETAMINOPHEN 650MG/20.3ML UDC PO PRN ×2 (11:40→16:13)
[2019-09-25] MEDS: ZINC SULFATE 220 MG ( 50 ) CAPSULE GT SCH (11:41)
[2019-09-25] MEDS: AMLODIPINE 2.5MG TABLET PEG SCH (11:41)
[2019-09-26] VITALS (18 sets, daily range): BP systolic 131–161; BP diastolic 60–78
[2019-09-26] MEDS: IPRATROPIUM/ALBUTEROL 0.5-3(2.5)MG/3ML NEB HHN SCH ×4 (02:44→21:20)
[2019-09-26] MEDS: PIPERACILLIN/TAZOBACTAM 2.25 G in DEXTROSE 5% WATER 50 ML IV SCH ×4 (03:10→20:42)
[2019-09-26 06:00] LABS: BASOPHILS % 0.7 % (0.0-2.0); EOSINOPHILS % 2.6 % (0.0-5.0); HEMATOCRIT. 22.8 % (42.0-52.0); HEMOGLOBIN. 7.2 g/dL (14.0-18.0); LYMPHOCYTES % 13.6 % (20.0-50.0); MEAN CORPUSCULAR HEMOGLOBIN 24.9 pg (28.0-32.0); MEAN CORPUSCULAR VOLUME 79.2 fL (80.0-94.0); MEAN PLATELET VOLUME 9.3 fl (7.4-10.4); MONOCYTES % 6.1 % (2.0-8.0); PLATELET 494 x1000/uL (130-400); RED BLOOD CELL COUNT 2.88 mill/uL (4.7-6.1); RED CELL DISTRIBUTION WIDTH 20.2 % (11.6-14.6)
[2019-09-26] MEDS: INSULIN LISPRO 100 UNITS/ML SUBCUT SCH ×3 (06:00→18:00)
[2019-09-26] MEDS: BLOOD SUGAR DIAGNOSTIC STRIP TEST SCH ×3 (06:05→18:04)
[2019-09-26] MEDS ORDERED: POTASSIUM CHLORIDE 20MEQ/PACKET PO SCH (07:45)
[2019-09-26] MEDS: ASCORBIC ACID 500 MG TABLET GT SCH (08:45)
[2019-09-26] MEDS: ZINC SULFATE 220 MG ( 50 ) CAPSULE GT SCH (08:45)
[2019-09-26] MEDS: FERROUS SULFATE 300MG/5ML UDC PEG SCH ×3 (08:45→18:05)
[2019-09-26] MEDS: AMLODIPINE 2.5MG TABLET PEG SCH ×2 (08:45→20:44)
[2019-09-26] MEDS: SUCRALFATE 1 G/10 ML UDC PO SCH ×4 (08:45→20:20)
[2019-09-26] MEDS: PANTOPRAZOLE SODIUM 40 MG/VIAL IV SCH ×2 (08:46→18:05)
[2019-09-26] MEDS: ACETAMINOPHEN 650MG/20.3ML UDC PO PRN (20:21)
[2019-09-27] VITALS (12 sets, daily range): BP systolic 112–142; BP diastolic 49–72
[2019-09-27] MEDS: IPRATROPIUM/ALBUTEROL 0.5-3(2.5)MG/3ML NEB HHN SCH ×4 (02:48→20:36)
[2019-09-27] MEDS: INSULIN LISPRO 100 UNITS/ML SUBCUT SCH ×4 (06:00→17:05)
[2019-09-27] MEDS: BLOOD SUGAR DIAGNOSTIC STRIP TEST SCH ×4 (06:00→17:05)
[2019-09-27] MEDS: PIPERACILLIN/TAZOBACTAM 2.25 G in DEXTROSE 5% WATER 50 ML IV SCH ×4 (06:29→23:10)
[2019-09-27 06:59] LABS: BASOPHILS % 0.4 % (0.0-2.0); EOSINOPHILS % 2.3 % (0.0-5.0); HEMATOCRIT. 24.9 % (42.0-52.0); HEMOGLOBIN. 7.8 g/dL (14.0-18.0); LYMPHOCYTES % 14.5 % (20.0-50.0); MEAN CORPUSCULAR HEMOGLOBIN 24.7 pg (28.0-32.0); MEAN CORPUSCULAR VOLUME 78.4 fL (80.0-94.0); MEAN PLATELET VOLUME 9.6 fl (7.4-10.4); MONOCYTES % 6.2 % (2.0-8.0); NEUTROPHILS % 76.6 % (40.0-76.0); PLATELET 490 x1000/uL (130-400); RED BLOOD CELL COUNT 3.17 mill/uL (4.7-6.1); RED CELL DISTRIBUTION WIDTH 19.9 % (11.6-14.6)
[2019-09-27] MEDS: SUCRALFATE 1 G/10 ML UDC PO SCH ×4 (09:06→23:08)
[2019-09-27] MEDS: FERROUS SULFATE 300MG/5ML UDC PEG SCH ×3 (09:07→17:40)
[2019-09-27] MEDS: PANTOPRAZOLE SODIUM 40 MG/VIAL IV SCH ×2 (09:07→17:39)
[2019-09-27] MEDS: ZINC SULFATE 220 MG ( 50 ) CAPSULE GT SCH (09:07)
[2019-09-27] MEDS: ASCORBIC ACID 500 MG TABLET GT SCH (09:07)
[2019-09-27] MEDS: AMLODIPINE 2.5MG TABLET PEG SCH ×2 (09:08→23:10)
[2019-09-27] MEDS: ACETAMINOPHEN 650MG/20.3ML UDC PO PRN (23:09)
[2019-09-28] VITALS (13 sets, daily range): BP systolic 126–157; BP diastolic 55–77
[2019-09-28] MEDS: PIPERACILLIN/TAZOBACTAM 2.25 G in DEXTROSE 5% WATER 50 ML IV SCH ×2 (03:28→08:51)
[2019-09-28] MEDS: BLOOD SUGAR DIAGNOSTIC STRIP TEST SCH ×5 (06:00→23:57)
[2019-09-28] MEDS: INSULIN LISPRO 100 UNITS/ML SUBCUT SCH ×5 (06:00→23:57)
[2019-09-28] MEDS: IPRATROPIUM/ALBUTEROL 0.5-3(2.5)MG/3ML NEB HHN SCH ×3 (08:35→20:30)
[2019-09-28] MEDS: AMLODIPINE 2.5MG TABLET PEG SCH ×2 (08:50→21:36)
[2019-09-28] MEDS: ASCORBIC ACID 500 MG TABLET GT SCH (08:50)
[2019-09-28] MEDS: ZINC SULFATE 220 MG ( 50 ) CAPSULE GT SCH (08:50)
[2019-09-28] MEDS: SUCRALFATE 1 G/10 ML UDC PO SCH ×4 (08:51→21:37)
[2019-09-28] MEDS: PANTOPRAZOLE SODIUM 40 MG/VIAL IV SCH ×2 (08:51→17:40)
[2019-09-28] MEDS: FERROUS SULFATE 300MG/5ML UDC PEG SCH ×3 (08:51→17:40)
[2019-09-29] VITALS: BP 130/66
[2019-09-29 00:20] VITALS: BP 143/83
== END 2019-09-29 00:45 | DRG 853 ==
LOC: ER 20:21 → 5EST 23:09 → EDBEDREQ 23:12 → EDBEDREQTM 23:12 → ENRESERV 23:17
PROVIDERS: ADMIT Internal Medicine; ATTEND Internal Medicine
PROC: 0QBK0ZZ Excision of Left Fibula, Open Approach (ICD-10-PCS; principal; 2019-09-08)
PROC: 0JB90ZZ Excision of Buttock Subcutaneous Tissue and Fascia, Open Approach (ICD-10-PCS; 2019-09-08)
PROC: 0KBP0ZZ Excision of Left Hip Muscle, Open Approach (ICD-10-PCS; 2019-09-08)
PROC: 0KBN0ZZ Excision of Right Hip Muscle, Open Approach (ICD-10-PCS; 2019-09-08)
PROC: 30233N1 Transfusion of Nonautologous Red Blood Cells into Peripheral Vein, Percutaneous Approach (ICD-10-PCS; 2019-09-08)
PROC: 0DB68ZX Excision of Stomach, Via Natural or Artificial Opening Endoscopic, Diagnostic (ICD-10-PCS; 2019-09-10)
PROC: 0DB78ZX Excision of Stomach, Pylorus, Via Natural or Artificial Opening Endoscopic, Diagnostic (ICD-10-PCS; 2019-09-10)
PROC: 0KBP0ZZ Excision of Left Hip Muscle, Open Approach (ICD-10-PCS; 2019-09-22)
PROC: 0KBN0ZZ Excision of Right Hip Muscle, Open Approach (ICD-10-PCS; 2019-09-22)
PROC: 0JB90ZZ Excision of Buttock Subcutaneous Tissue and Fascia, Open Approach (ICD-10-PCS; 2019-09-22)
DX: A40.9 Streptococcal sepsis, unspecified (principal); L89.894 Pressure ulcer of other site, stage 4; L89.313 Pressure ulcer of right buttock, stage 3; L89.524 Pressure ulcer of left ankle, stage 4; L89.154 Pressure ulcer of sacral region, stage 4; J96.01 Acute respiratory failure with hypoxia; E43 Unspecified severe protein-calorie malnutrition; K25.4 Chronic or unspecified gastric ulcer with hemorrhage; J69.0 Pneumonitis due to inhalation of food and vomit; G93.41 Metabolic encephalopathy; K29.71 Gastritis, unspecified, with bleeding; R47.01 Aphasia; E87.1 Hypo-osmolality and hyponatremia; E87.2 Acidosis; L03.116 Cellulitis of left lower limb; I47.2 Ventricular tachycardia; M62.82 Rhabdomyolysis; N17.9 Acute kidney failure, unspecified; R64 Cachexia; Z16.24 Resistance to multiple antibiotics; M86.8X7 Other osteomyelitis, ankle and foot; I69.354 Hemiplegia and hemiparesis following cerebral infarction affecting left non-dominant side; E11.52 Type 2 diabetes mellitus with diabetic peripheral angiopathy with gangrene; D69.6 Thrombocytopenia, unspecified; R65.20 Severe sepsis without septic shock; R13.10 Dysphagia, unspecified; E78.5 Hyperlipidemia, unspecified; D50.9 Iron deficiency anemia, unspecified; E11.22 Type 2 diabetes mellitus with diabetic chronic kidney disease; E78.00 Pure hypercholesterolemia, unspecified; E87.6 Hypokalemia; F03.90 Unspecified dementia, unspecified severity, without behavioral disturbance, psychotic disturbance, mood disturbance, and anxiety; N18.9 Chronic kidney disease, unspecified; I13.10 Hypertensive heart and chronic kidney disease without heart failure, with stage 1 through stage 4 chronic kidney disease, or unspecified chronic kidney disease; I35.8 Other nonrheumatic aortic valve disorders; I49.3 Ventricular premature depolarization; K44.9 Diaphragmatic hernia without obstruction or gangrene; E11.69 Type 2 diabetes mellitus with other specified complication; L89.309 Pressure ulcer of unspecified buttock, unspecified stage; E11.621 Type 2 diabetes mellitus with foot ulcer; L97.529 Non-pressure chronic ulcer of other part of left foot with unspecified severity; M24.569 Contracture, unspecified knee; M85.872 Other specified disorders of bone density and structure, left ankle and foot; Z74.01 Bed confinement status; Z93.1 Gastrostomy status; Z79.4 Long term (current) use of insulin; Z68.22 Body mass index [BMI] 22.0-22.9, adult; Z22.322 Carrier or suspected carrier of Methicillin resistant Staphylococcus aureus
CPT/HCPCS: 36415; 36600; 71045; 73590; 73620; 74018; 76770; 80048; 80202; 81003; 82270; 82375; 82550; 82728; 82805; 82962; 83036; 83540; 83550; 83605; 83735; 84100; 84134; 84145; 84439; 84443; 84481; 84484; 85014; 85018; 85027; 85651; 86038; 86140; 86160; 86256; 86671; 86850; 86900; 86920; 87015; 87045; 87070; 87075; 87177; 87186; 87209; 87427; 87449; 88305; 88313; 89055; 90686; 93005; 93306; 93923; 93970; 94640; 96361; 96365; 99291; C1893; C9113; J0692; J1815; J1956; J2020; J2250; J2543; J3010; J3370; J3480; J3490; J7030; J7040; J7050; J7060; J7620; P9016; A4315

== ENCOUNTER 2019-09-29 02:52 | Emergency (ER) | payer MEDICARE, MEDICAID ==
[~2019-09-29] VITALS: Ht 172.7 cm; Wt 75.0 kg
[2019-09-29] MEDS ORDERED: SODIUM CHLORIDE 0.9% 500 ML IV ONE (06:17)
[2019-09-29 06:29] LABS: BASOPHILS % 0.5 % (0.0-2.0); EOSINOPHILS % 1.8 % (0.0-5.0); HEMATOCRIT. 24.9 % (42.0-52.0); LYMPHOCYTES % 14.2 % (20.0-50.0); MEAN CORPUSCULAR HEMOGLOBIN 24.9 pg (28.0-32.0); MEAN CORPUSCULAR VOLUME 77.5 fL (80.0-94.0); MEAN PLATELET VOLUME 8.3 fl (7.4-10.4); MONOCYTES % 6.4 % (2.0-8.0); NEUTROPHILS % 77.1 % (40.0-76.0); PLATELET 516 x1000/uL (130-400); RED BLOOD CELL COUNT 3.22 mill/uL (4.7-6.1); RED CELL DISTRIBUTION WIDTH 20.1 % (11.6-14.6)
[2019-09-29 06:36] LABS: CHLORIDE 110 mEq/L (98-107)
[2019-09-29 07:38] LABS: CLARITY URINE CLEAR (CLEAR); COLOR URINE YELLOW (YELLOW); KETONES URINE NEGATIVE (NEGATIVE); LEUKOCYTE ESTERASE URINE NEGATIVE (NEGATIVE); NITRITE URINE NEGATIVE (NEGATIVE); OCCULT BLOOD URINE TRACE (NEGATIVE); PROTEIN URINE TRACE (NEGATIVE); SPECIFIC GRAVITY URINE 1.015 (1.005-1.030)
[2019-09-29] MEDS ORDERED: METOPROLOL TARTRATE 25MG TABLET PO NR (07:45)
[2019-09-29 12:45] VITALS: BP 141/68
[2019-09-29] MEDS ORDERED: METOPROLOL TARTRATE 25MG TABLET PO ONE (12:45)
== END 2019-09-29 12:48 ==
LOC: ER 02:52
DX: R00.0 Tachycardia, unspecified (principal); L89.159 Pressure ulcer of sacral region, unspecified stage; E11.9 Type 2 diabetes mellitus without complications; I10 Essential (primary) hypertension
CPT/HCPCS: 36415; 71045; 80053; 81003; 82962; 83605; 85025; 93005; 99284; J7030